=== PATIENT | female | born 1985 | race Hispanic/Latino ===

== ENCOUNTER 2018-05-20 09:27 | Outpatient (CLI) | payer OTHER ==
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
== END 2018-05-20 09:28 | disposition home or self-care (01) ==
LOC: SCSCT 09:27
PROVIDERS: ATTEND Neurological Surgery
DX: S14.109A Unspecified injury at unspecified level of cervical spinal cord, initial encounter (principal); M54.41 Lumbago with sciatica, right side; M48.062 Spinal stenosis, lumbar region with neurogenic claudication; M43.9 Deforming dorsopathy, unspecified
CPT/HCPCS: 72131; 72158

== ENCOUNTER 2022-05-30 08:57 | Outpatient (CLI) | payer OTHER | END 2022-05-30 08:58 | disposition home or self-care (01) | LOC: DTY/OP 08:57 | PROVIDERS: ATTEND Surgery | DX: E66.01 Morbid (severe) obesity due to excess calories (principal) | CPT/HCPCS: 97802 ==